=== PATIENT | female | born 1970 ===

== ENCOUNTER 2017-04-13 08:19 | Emergency (ER) | payer OTHER ==
[2017-04-13 08:35] VITALS: BP 118/72; PULSE 70; RESP 16; TEMP 98.6; O2SAT 99; BMI 23.4
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
== END 2017-04-13 09:15 | disposition home or self-care (01) ==
LOC: ED 08:19
DX: Z04.1 Encounter for examination and observation following transport accident (principal); V47.5XXA Car driver injured in collision with fixed or stationary object in traffic accident, initial encounter; Y92.410 Unspecified street and highway as the place of occurrence of the external cause

== ENCOUNTER 2018-08-05 10:14 | Emergency (ER) | payer OTHER ==
[2018-08-05 10:37] VITALS: TEMP 98.4; O2SAT 100; BMI 23.7
--- NOTE | 2018-08-05 10:39 | ED PDOC ---
Arrival/HPI - General Time Seen by Provider: 08/05/18 10:33 Historian: Patient - History of Present Illness Narrative History of Present Illness (Text): 08/05/18 10:38 47yo female with pmhx of Anemia who present with complaint of severe lower back pain since yesterday. states pain started while lifting objects. Pain is worse with movement. States she have had back pain in the past, but not this severe. states her pain improved today, from yesterday without taking any analgesic. Denies trauma, abdominal pain, saddle anesthesia, urinary/fecal incontinence, focal weakness, urinary symptoms, fever, chills, any other complaint. Past Medical History - Provider Review Nursing Documentation Reviewed: Yes - Infectious Disease Hx of Infectious Diseases: None - Psychiatric Hx Substance Use: No - Surgical History Hx Hysterectomy: Yes - Anesthesia Hx Anesthesia: No Hx Anesthesia Reactions: No Hx Malignant Hyperthermia: No Family/Social History - Physician Review Nursing Documentation Reviewed: Yes Family/Social History: Unknown Family HX Smoking Status: Never Smoked Hx Alcohol Use: No Hx Substance Use: No Allergies/Home Meds Allergies/Adverse Reactions: Allergies aspirin Allergy (Verified 08/05/18 10:42) RASH Home Medications: Home Meds Medication Instructions Recorded Confirmed Cholecalciferol (Vitamin D3) 0 iu PO 11/18/15 11/18/15 [Vitamin D] Multivitamin (MVI) [M.v.i-12 10 Ml] 1 tab PO DAILY 11/18/15 11/18/15 Review of Systems - Physician Review All systems were reviewed & negative as marked: Yes - Review of Systems Constitutional: Normal Eyes: Normal ENT: Normal Respiratory: Normal Cardiovascular: Normal Gastrointestinal: Normal Genitourinary Female: Normal Musculoskeletal: Back Pain Skin: Normal Neurological: Normal Endocrine: Normal Hemo/Lymphatic: Normal Psychiatric: Normal Physical Exam Vital Signs Reviewed: Yes Vital Signs Temp Pulse Resp BP Pulse Ox 08/05/18 10:36 98.4 F 87 17 125/69 100 Temperature: Afebrile Blood Pressure: Normal Pulse: Regular Respiratory Rate: Normal Appearance: Positive for: Well-Appearing, Non-Toxic, Comfortable Pain Distress: None Mental Status: Positive for: Alert and Oriented X 3 - Systems Exam Head: Present: Atraumatic, Normocephalic Pupils: Present: PERRL Extroacular Muscles: Present: EOMI Conjunctiva: Present: Normal Mouth: Present: Moist Mucous Membranes Neck: Present: Normal Range of Motion Respiratory/Chest: Present: Clear to Auscultation, Good Air Exchange. No: Respiratory Distress, Accessory Muscle Use Cardiovascular: Present: Regular Rate and Rhythm, Normal S1, S2. No: Murmurs Abdomen: No: Tenderness, Distention, Peritoneal Signs Back: Present: Paraspinal Tenderness (Diffuse paraspinous tenderness), Pain with Leg Raise (B/L) Upper Extremity: Present: Normal Inspection. No: Cyanosis, Edema Lower Extremity: Present: Normal Inspection. No: Edema Neurological: Present: GCS=15, CN II-XII Intact, Speech Normal Skin: Present: Warm, Dry, Normal Color. No: Rashes Psychiatric: Present: Alert, Oriented x 3, Normal Insight, Normal Concentration Medical Decision Making ED Course and Treatment: 08/05/18 20:07 Pt in ED for stated history. She was ambulatory and neurologically intact LS xray IMPRESSION: No acute displaced fracture or subluxation. Moderate constipation. UA negative Result was DW the pt. She reported that her pain improved in ED with medication. she was DC home with pain medication. Advised to rest and apply warm compress/shower to area Referred to her PMD TRT ED for any new or worsening symptoms - RAD Interpretation Radiology Orders: 08/05/18 10:37 LS SPINE WITH OBL > 18 YRS OLD [RAD] Stat Disposition/Present on Arrival - Present on Arrival Any Indicators Present on Arrival: No History of DVT/PE: No History of Uncontrolled Diabetes: No Urinary Catheter: No History Surgical Site Infection Following: None - Disposition Have Diagnosis and Disposition been Completed?: Yes Diagnosis: Back pain Disposition: HOME/ ROUTINE Disposition Time: 11:55 Patient Plan: Discharge Condition: STABLE Discharge Instructions (ExitCare): Low Back Pain in Adults Additional Instructions: Rest, take medication, apply warm compress/shower to area Follow up with your Doctor Return to ED for any new or worsening symptoms Prescriptions: RX: Baclofen [Lioresal] 10 mg PO BID #10 tab Lidocaine 5% [Lidoderm] 1 each TP BID #10 patch RX: traMADol [Ultram] 50 mg PO TID #10 tab Referrals: Medhat Summers MD [Primary Care Provider] - Follow up with primary Gigi Walter III, MD [Medical Doctor] - Follow up with primary Forms: [facility] (Green[place]ic)
[2018-08-05 11:21] LABS: URINE BILIRUBIN NEGATIVE (NEGATIVE); URINE BLOOD NEGATIVE (NEGATIVE); URINE GLUCOSE (UA) 250 mg/dL (NEGATIVE); URINE LEUKOCYTE ESTERASE NEGATIVE Leu/uL (NEGATIVE); URINE PROTEIN TRACE mg/dL (<30 mg/dL)
[2018-08-05 11:34] LABS: URINE APPEARANCE CLEAR (CLEAR); URINE COLOR YELLOW (YELLOW)
[2018-08-05 11:36] LABS: URINE BACTERIA MOD (NEG); URINE RBC 0 - 2 /hpf (0-2); URINE WBC 0 - 2 /hpf (0-6)
--- NOTE | 2018-08-05 11:43 | RAD ---
Date of service: 08/05/2018 PROCEDURE: Radiographs of the Lumbar Spine. HISTORY: back pain COMPARISON: None available. FINDINGS: BONES: Alignment appears satisfactory. No listhesis. No acute displaced fracture identified. DISC SPACES: Unremarkable. OTHER FINDINGS: Moderate constipation. Pelvic calcifications, likely phleboliths. IMPRESSION: No acute displaced fracture or subluxation. Moderate constipation.
[2018-08-05 12:03] VITALS: BP 109/73; PULSE 64; RESP 16
== END 2018-08-05 12:02 | disposition home or self-care (01) ==
LOC: ED 10:14
DX: M54.5 Low back pain (principal)
CPT/HCPCS: 72110; 81001; 96372; 99281; J1885